=== PATIENT | female | born 1950 | race Caucasian/White ===

== ENCOUNTER 2021-08-02 08:53 | Outpatient (REF) | payer BC, SELFPAY ==
[2021-08-02 09:29] LABS: MANUAL DIFF FLAG NO
[2021-08-02 10:04] LABS: Basophils Absolute Auto 0.1 X10*3/uL (0.0-0.2); Basophils Percent Auto 1.2 % (0-2); Eosinophils Absolute Auto 0.2 X10*3/uL (0.0-0.4); Eosinophils Percent Auto 2.2 % (0-4); Hematocrit 40.8 % (37.0-47.0); Hemoglobin 13.3 g/dl (12.0-16.0); Imm Gran Abs Auto 0.02 X10*3/uL (0.00-0.03); Imm Gran Pct Auto 0.3 % (0.0-0.4); Lymphocytes Percent Auto 51.4 % (20-40); Mean Corpuscular HGB Conc 32.6 g/dl (31.0-35.0); Mean Corpuscular Volume 89.1 fL (80.0-98.0); Monocytes Absolute Auto 0.7 X10*3/uL (0.1-1.2); Monocytes Percent Auto 9.3 % (2-11); Neutrophils Absolute Auto 2.8 x10*3/uL (2.0-8.3); Neutrophils Percent Auto 35.6 % (45-73); Platelet Count 390 X10*3/uL (160-400); Red Blood Count 4.58 X10*6/uL (4.20-5.50); Red Cell Distribution Width 13.4 % (11.0-16.0); White Blood Count 7.7 X10*3/uL (4.8-10.8)
[2021-08-02 10:33] LABS: Alanine Aminotransferase 51 U/L (0-31); Albumin Level 3.9 g/dL (3.5-5.0); Alkaline Phosphatase 70 U/L (39-117); Anion Gap 9 (12-20); Aspartate Amino Transferase 32 U/L (5-31); Bilirubin Total 0.4 mg/dL (0.0-1.0); Blood Urea Nitrogen 12 mg/dL (9-16); Calcium 9.4 mg/dL (8.4-10.2); Carbon Dioxide 27 mmol/L (22-29); Chloride 106 mmol/L (96-108); Cholesterol 274 mg/dL; Estimated Glomerular Filt Rate 44; Glucose Random 102 mg/dL (60-115); HDL Cholesterol 76 mg/dL; LDL Cholesterol Calculated 182 mg/dl; Potassium 4.1 mmol/L (3.3-5.1); Sodium 138 mmol/L (135-145); Total Protein 6.9 g/dL (6.5-8.0); Triglycerides 83 mg/dL
== END 2021-08-02 08:54 | disposition home or self-care (01) ==
LOC: HO.LAB 08:53
PROVIDERS: PCP Internal Medicine; Visit Provider Physician Assistant
DX: I10 Essential (primary) hypertension (principal)
CPT/HCPCS: 36415; 80053; 80061; 85025

== ENCOUNTER 2021-09-23 11:13 | Outpatient (REF) | payer BC, SELFPAY ==
[2021-09-23 12:35] LABS: Albumin Level 4.1 g/dL (3.5-5.0); Calcium 9.2 mg/dL (8.4-10.2); Estimated Glomerular Filt Rate 46
[2021-09-23 12:50] LABS: Thyroid Stimulating Hormone 0.82 uIU/mL (0.32-4.0); Vitamin D 25-OH Total 34.6 ng/mL (>30)
== END 2021-09-23 11:14 | disposition home or self-care (01) ==
LOC: HO.LAB 11:13
PROVIDERS: Absent Provider Internal Medicine; PCP Internal Medicine; Visit Provider Internal Medicine Endocrinology, Diabetes & Metabolism
DX: M81.0 Age-related osteoporosis without current pathological fracture (principal)
CPT/HCPCS: 36415; 82040; 82306; 82310; 82565; 84443

== ENCOUNTER 2023-07-13 08:08 | Outpatient (REF) | payer BC, SELFPAY ==
[2023-07-13 09:26] LABS: Anion Gap 13 (12-20); Blood Urea Nitrogen 15 mg/dL (9-16); Calcium 9.8 mg/dL (8.4-10.2); Carbon Dioxide 26 mmol/L (22-29); Chloride 106 mmol/L (96-108); Cholesterol 277 mg/dL (<200); Estimated Glomerular Filt Rate 45; Glucose Random 100 mg/dL (60-115); HDL Cholesterol 70 mg/dL (>40); LDL Cholesterol Calculated 184 mg/dL (<100); Potassium 4.1 mmol/L (3.3-5.1); Sodium 141 mmol/L (135-145); Triglycerides 117 mg/dL (<150)
== END 2023-07-13 08:09 | disposition home or self-care (01) ==
LOC: HO.LAB 08:08
PROVIDERS: PCP Family Medicine; Visit Provider Family Medicine
DX: I10 Essential (primary) hypertension (principal)
CPT/HCPCS: 36415; 80048; 80061

== ENCOUNTER 2023-09-04 10:24 | Outpatient (REF) | payer BC, SELFPAY ==
[2023-09-04 12:12] LABS: Albumin Level 3.9 g/dL (3.5-5.0); Calcium 9.9 mg/dL (8.4-10.2); Estimated Glomerular Filt Rate 51
[2023-09-04 12:34] LABS: Thyroid Stimulating Hormone 0.76 uIU/mL (0.32-4.0); Vitamin D 25-OH Total 29.5 ng/mL (>30)
== END 2023-09-04 10:25 | disposition home or self-care (01) ==
LOC: HO.LAB 10:24
PROVIDERS: PCP Family Medicine; Visit Provider Internal Medicine Endocrinology, Diabetes & Metabolism
DX: M81.0 Age-related osteoporosis without current pathological fracture (principal); E89.0 Postprocedural hypothyroidism
CPT/HCPCS: 36415; 82040; 82306; 82310; 82565; 84443

== ENCOUNTER 2024-06-09 07:55 | Outpatient (REF) | payer MEDICARE, SELFPAY ==
--- OUTSIDE RECORDS SUMMARY | 2024-06-09 08:03 | XMS_ITS | Data Portability ---
Author Organization [facility] Service Address [address] [place] [address] Assessment Encounter Date Assessment Date Assessment LastModified by Organization Details LastModified Time 11/01/2021 11/01/2021 Patient agreed and verbally consents to this audio and video Telehealth appt via a secure platform [email or web address] Not available 11/01/2021 15:52:36 01/20/2022 01/20/2022 The patient denies recent falls or recurrent falls. Denies instability, weakness, abnormal gait, or difficulties with movement. The patient wears correct, supportive shoes and is not otherwise severely visually impaired. The patient is full weight bearing and if using the assistance of a cane or walker feels supported and stable with the use of such devices. All medical conditions have been taken into account that may pose a risk for the patient for falls. Home jake, carpets and/or rugs do not pose a challenge for the patient. The patient has been educated about the use of vitamin D supplementation for bone health and prevention of hypotensive episodes that may increase risk for fall. All question and concerns were answered to the patient's satisfaction. [email or web address] Not available 01/20/2022 11:39:39 Plan of Treatment Reminders Order Date Submit Date Provider Last Modified By Organization Details Last Modified Time Details Appointments None recorded. Lab CBC w/ auto diff 2021 [facility], [address] [place] [address], [place], [address], 12:10:12 CMP, serum or plasma 2021 [facility], [address] [place] [address], [address], 12:10:12 lipid panel, blood 2021 [facility], [address] [place] [address], [place], [address], 12:10:12 Referral allergy and immunology specialist referral 2021 [facility] [address] [facility], [address] [place], [address], 16:43:24 Procedures None recorded. Surgeries None recorded. Imaging CT, breast, w/ 3D rendering when performed, bilateral, w/ contrast - dense breast tissue, recommended fu imaging outside of the MM 2021 [facility], [address], [place], [address], 08:45:39 Medication Orders neomycin-po lymyxin-hyd rocort 3.5 mg-10,000 unit/mL-1 % ear drops,susp 2021 [id number], [address] [place], [place], [id number], 11:17:54 losartan 25 mg tablet 2021 [facility], [address] [place] [address], [address], 09:44:32 amoxicillin 875 mg-potassiu m clavulanate 125 mg tablet 2021 [id number], [facility] [place], [place], [phone], 09:28:46 famotidine 40 mg tablet 2021 [facility], [address] [place] [address], [address], 15:53:43 betamethaso ne valerate 0.1 % topical cream 2021 [id number], [address] [facility], [place], [place], [id number], 15:17:55 albuterol sulfate 2.5 mg/3 mL (0.083 %) solution for nebulizatio n 2021 [facility], [address] [facility], [place], [address], 14:00:50 Patient TargetsNo targets recorded. Patient InstructionsNo instructions recorded. Reason for Referral Hose Maker Referral for Seaso nal allergic rhinitis possible seasonal allergies with ear pressure Referring Physician: Julia Pelayo, Internal Medicine, Encounter Date: 01/20/2022 Results Created Date Observation Date Name Description Value Unit Range Abnormal Flag Note LastModifiedBy Organization Detail LastModifiedTime Result Notes None recorded. Problems Name Problem SNOMED Code Status Onset Date Resolution Date Notes Provider Name and Address Organization Details Recorded Time Osteoporo sis 77655228 Active 2021 Not Available [facility] 3 18:29:46 Diverticu losis of colon 487567460 Active 2021 Not Available [facility] 3 18:29:46 Asthma 428307374 Active 2021 Not Available [facility] 3 18:29:46 Gastroeso phageal reflux disease 749803770 Active 2021 Not Available [facility] 3 18:29:46 Arthritis 0064455 Active 2021 Not Available [facility] 3 18:29:46 Raynaud's disease 607361034 Active 2021 Not Available [facility] 3 18:29:46 Basal cell carcinoma of skin 946289635 Active 2021 Not Available [facility] 3 18:29:46 Hypertens augie disorder 80998679 Active 2021 Not Available [facility] 3 18:29:46 Hyperlipi demia 93631721 Active 2021 Not Available [facility] 3 18:29:46 Contact dermatiti s 43254065 Active 2021 Not Available [facility] 3 18:29:46 Hordeolum externum of upper eyelid of left eye 69526028555 9102 Active 2021 Not Available [facility] 3 18:29:46 Acute sinusitis 63646776 Active 2021 Not Available [facility] 3 18:29:46 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 Not Available [facility] 3 18:29:46 Acute otitis media 7882362 Active 2021 Not Available [facility] 3 18:29:46 Essential hypertens ion 61384945 Active 2021 Not Available [facility] 3 18:29:46 Bilateral earache 758761619 Active 2021 Not Available [facility] 3 18:29:46 Bilateral tinnitus 03116800302 02 Active 2021 Not Available [facility] 3 18:29:46 Seasonal allergic rhinitis 768670944 Active 2021 Not Available [facility] 3 18:29:46 Heterogen eously dense breast compositi on 055936675 Active 2021 Not Available [facility] 3 18:29:46 Problem Notes None recorded. Medical Equipment None Reported. Allergies Allergen ID Allergen Name Allergen Category Reaction Reaction Severity Criticality Documentation Date Start Date Code Code System Note Provider Name and Address Organization Details Recorded Time 5647 Ceclor medicatio n Not available Not available Not available 07/08/2021 03586 5 RxNorm [facility] 2 13:37:48 5648 morphine medicatio n Not available Not available Not available 07/08/2021 7052 RxNorm [facility] 2 13:37:55 5649 Levaquin medicatio n Not available Not available Not available 07/08/2021 19566 2 RxNorm IV form Mendy lafleur [facility] 2 13:38:18 5650 latex environme nt,medica tion Not available Not available Not available 07/08/2021 04119 91 RxNorm Mendy lafleur [facility] 2 13:38:25 5651 adhesive environme nt,medica tion Not available Not available Not available 07/08/2021 38513 UNK Mendy Daleyner miquel [facility] 2 13:38:32 5896 Keflex medicatio n anaphylax is severe Not available 11/01/202156569 7 RxNorm CAREY SMITH [address] [place], [address], [facility] 2 15:51:13 Medications Name Sig Start Date Stop Date Status Note LastModified by Organization Details LastModified Time budesonide 32 mcg/actuati on nasal spray SHAKE LIQUID AND USE 1 SPRAY IN EACH NOSTRIL EVERY DAY active Not Available Not Available No t Available zafirlukast 10 mg tablet TAKE 1 TABLET BY MOUTH TWICE DAILY 07/08 completed Not Available Not Available Not Available albuterol sulfate 2.5 mg/3 mL (0.083 %) solution for nebulizatio n Inhale 3 mL 3 times a day by nebulizat ion route as needed for 90 days. active Not Available Not Available No t Available famotidine 40 mg tablet TAKE 1 TABLET DAILY active Not Available Not Available No t Available fluorouraci l 5 % topical cream APPLY TOPICALLY TO THE AFFECTED AREA TWICE DAILY FOR 4 TO 6 WEEKS active Not Available Not Available No t Available betamethaso ne valerate 0.1 % topical cream APPLY THIN LAYER TOPICALLY TO THE AFFECTED AREA EVERY DAY active Not Available Not Available No t Available losartan 25 mg tablet TAKE 1 TABLET BY MOUTH DAILY active Not Available Not Available No t Available Synthroid 75 mcg tablet Take 1 tablet every day by oral route for 90 days. active Not Available Not Available No t Available raloxifene 60 mg tablet Take 1 tablet every day by oral route. active Not Available Not Available No t Available albuterol sulfate HFA 90 mcg/actuati on aerosol inhaler Inhale 2 puffs as needed by inhalatio n route for 90 days. active Not Available Not Available No t Available amoxicillin 875 mg-potherou m clavulanate 125 mg tablet TAKE 1 TABLET BY MOUTH EVERY 12 HOURS FOR 10 DAYS 12/04 completed Not Available Not Available Not Available neomycin-po lymyxin-hyd rocort 3.5 mg-10,000 unit/mL-1 % ear drops,susp SHAKE LIQUID AND INSTILL 4 DROPS TO AFFECTED EAR THREE TIMES DAILY 01/20 completed Not Available Not Available Not Available Restasis 0.05 % eye drops in a dropperette active Not Available Not Available Not Available [place] 3 Fish Oil daily active OTC Not Available Not Available Not Available red yeast rice daily active OTC Not Available Not Available Not Available Flowflex COVID-19 Antigen Home Test kit 01/20 completed Not Available Not Available Not Available Vitals Date Recorded Body weight Oxygen saturation Oxygen saturation in Arterial blood by Pulse oximetry Heart rate Systolic blood pressure Diastolic blood pressure Provider Name and Address Organization Details Last Updated DateTime 2 58276.0 8 g 97 % 97 % 82 /min 132 mm[Hg] 70 mm[Hg] Mendy Thomas [facility] 2 13:43:48 Date Recorded Body weight Oxygen saturation Oxygen saturation in Arterial blood by Pulse oximetry Heart rate Systolic blood pressure Diastolic blood pressure Provider Name and Address Organization Details Last Updated DateTime 2 15172.7 1 g 98 % 98 % 78 /min 110 mm[Hg] 78 mm[Hg] Mendy Thomas [facility] 2 15:08:59 Date Recorded Body weight Oxygen saturation Oxygen saturation in Arterial blood by Pulse oximetry Heart rate Systolic blood pressure Diastolic blood pressure Provider Name and Address Organization Details Last Updated DateTime 2 34458.5 5 g 96 % 96 % 67 /min 138 mm[Hg] 90 mm[Hg] Mendy Thomas [facility] 2 09:35:27 Date Recorded Body weight Body mass index (BMI) Body height Provider Name and Address Organization Details Last Updated DateTime 01/20/2022 92983.58 g 21.2 kg/m2 168.91 cm Mendy Basile [facility] 01/20/2022 11:20:50 Social History Question Answer Notes LastModified by Organizat ion Details LastModified Time Tobacco Smoking Status Never Smoker Mendy lafleur [facility] 10/18/2021 15:03:02 What Was The Date Of Your Most Recent Tobacco Screening? 10/18/2021 [email or web address] Information not available 10/18/2021 Sex: Unknown Functional Status None recorded. Mental Status None recorded. Family History Nothing Reported. Medical History No medical history recorded. Gynecological HistoryNo gynecological history recorded. Obstetrics History GPAL:G 0 P 0 0 0 0 Immunizations Vaccine Type Date Status Note Provider Nam e and Address Organization Details Recorded Time COVID-19 vaccine, vector-nr, rS-Ad26, PF, 0.5 mL 1 completed Not Available [facility] 09/22/2022 18:29:46 COVID-19, mRNA, LNP-S, PF, 30 mcg/0.3 mL dose 1 completed Not Available [facility] 09/22/2022 18:29:46 COVID-19, mRNA, LNP-S, PF, 30 mcg/0.3 mL dose 2 completed Not Available [facility] 09/22/2022 18:29:46 COVID-19, mRNA, LNP-S, PF, 30 mcg/0.3 mL dose 2 completed Not Available [facility] 09/22/2022 18:29:46 zoster, unspecified formulation 6 completed Not Available [facility] 09/22/2022 18:29:46 Influenza, split virus, quadrivalent, preservative 7 completed Not Available [facility] 09/22/2022 18:29:46 Influenza, split virus, quadrivalent, preservative 0 completed Not Available [facility] 09/22/2022 18:29:46 Influenza, split virus, quadrivalent, preservative 1 completed Not Available [facility] 09/22/2022 18:29:46 Past Encounters Encounter ID Performer Location Encounter Start Date Encounter Closed Date Diagnosis/Indication Diagnosis SNOMED-CT Code Diagnosis ICD10 Code Diagnosis Note [id number] [facility] [address] [facility], [place] [address] 07/08/2021 13:19:39 07/09/2021 14:42:04 Asthma 110484330 J45.40 will increase how often she uses albuterol Hypertensive disorder 38 856662 I10 will fu with routine blood work Gastroesop hageal reflux disease 093671731 K21.9 stable Osteoporosis 15794634 M8 1.0 follows with endo Hyperlipidemia 50061849 E78.2 monitoring , does not want to be on a statin [id number] [facility] [address] [facility], [place] [address] 10/18/2021 14:45:28 10/18/2021 15:39:55 Contact dermatitis 72909828 L25.9 possible reaction to something at the dentist or when she was biking [id number] CAREY SMITH [facility] [address] [facility], [place] [address] 11/01/2021 15:19:05 11/04/2021 08:07:47 Hordeolum externum of upper eyelid of left eye 4741341431 03012 H00.014 will start on augmentin Acute sinusitis 87332295 J01.01 will fu with augmentin Gastroesop hageal reflux disease 755216191 K21.9 stable on the medication [id number] [facility] [address] [facility], [place] [address] 12/04/2021 09:25:42 12/04/2021 10:15:08 Essential hypertension 49498984 I10 will refill for the patient Acute otitis media 89343 03 H65.01 will start on ear drop with patient also still using flonase [id number] CAREY SMITH [facility] [address] [facility] [address] 01/20/2022 10:59:24 01/21/2022 10:53:14 Essential hypertension 93935407 I10 will refill for the patient Hyperlipidemia 72047395 E78.2 monitoring , does not want to be on a statin Asthma 187114637 J45.40 will increase how often she uses albuterol as discussed Bilateral tinnitus 94129 35512 102 H93.13 discussed sending her to allergy and immunology specialist since ENT is being booked out a year Seasonal a llergic rhinitis 108735006 J30.2 will send referral Heterogene ously dense breast composition 681438598 R92.2 will f/u with CT Health Concerns Section Related Observation LastModified by Organization Detai ls LastModified Time None Recorded Concern Status LastModified by Organization Details LastModified Time None Recorded Advance Directives Directive None Recorded Payers Encounter Date Sequence Insurance Name Policy Number Policy Varma Covered Member ID Varma Member ID Guarantor Name 07/08/2021 1 [place] [id number] [facility] [id number] [facility] 10/18/2021 1 [place] [id number] [facility] [id number] [facility] 11/01/2021 1 [place] [id number] [facility] [id number] [facility] 12/04/2021 1 [place] [id number] [facility] [id number] [facility] 01/20/2022 1 [place] [id number] [facility] [id number] 09 [facility] Notes Date Note Type Note Provider Name a nd Address Organization Details Recorded Time 2 text/html NPV allergies: listed in her chartno changes in allergies problems:arthritis: discussed supplement she could use, can try tumeric which she has had luck with in the pastdoes not want to try medications or gels, concerned about side effects asthma: discussed start increase in albuterol, how often she takes it and set her up with a neb to use for bad flare ups GERD: stable HTN: stable osteoporosis: sees endo for consult and eval, adjustment of medications Medication: all set vitals: stable CAREY SMITH [address] [place], [address], [facility] 07/08/2021 14:14:55 2 text/html c/o rash the patient reports that she developed a rash around last weekno idea what caused itwas recently at the dentist and has a latex allergynot sure what they had on for PPE when she wentwas also biking and brushed past some trees which may have contributed looks like contact dermatitis, cause unknown at this timewill start on higher potency steriod cream and fu continue on claritin as she has a bilateral serous otitis media (R>L) CAREY SMITH [address] [place], [address], [facility] 10/18/2021 15:25:29 2 text/html c/o sinus symptoms telemed phone callpatient consents to the phone call the patient reports that she originally thought her symptoms were related to her allergiesthe patient reports that she developed pain in her bilateral earsreports fatigue increasing as well reports that she feels sinus pressure now, with left eye pressure and painthe patient reports she developed a stye in her left eye will start on augmentin CAREY SMITH [address] [place], [address], [facility] 11/01/2021 16:01:18 2 text/html c/o right ear pain the patient reports that she recovered from her sinus infection but now her ear, right sideprobably from allergiesstopped the flonase and also went on vacation where the elevation caused her ears to continuously pop will start on an ear drop with abx and steriod combo to help patientwill restart her on flonasecan also start anti-histamine as well if she would likefu if no improvement CAREY SMITH [address] [place], [address], [facility] 12/04/2021 09:52:00 2 text/html f/u appointment with mutliple concerns HTN: patient refused vitals HLD: patient will need blood work asthma: stable, but patient refused vitals handled all of patient's concerns today that would otherwise be a physical concern will start will allergy and immunology specialist referraljanae quintana with CT scan of her breast for extremely dense breasts asthma stable declined dariel went over BW with patient CAREY SMITH [address] [place], [address], [facility] 01/20/2022 11:51:02 OBGyn Episode No OBEpisode recorded.
--- OUTSIDE RECORDS SUMMARY | 2024-06-09 08:03 | XMS_ITS | Continuity of Care Document ---
Author Organization [facility] ter Address [address] [place] [id number]- Care Team Providers Care Baggage Checker Name Role Phone Yamila Watters MD Primary Care Physician Encounter 05/13/24 - 05/14/[address] [id number] Attending Physician: Not on Staff, Attending MD Referring Physician: Not on Staff, Referring MD Encounter Type: SMRI Allergies, Adverse Reactions, Alerts Substance Criticality Severity Reaction Reaction Severity Status cephalexin Bronchospasm Active Ceclor hives Active morphine 1 Pruritus - diso rder hives Active Levaquin Knee swelling 11-JUN-2013 07:21:16<$> burning through veins Active 1was able to tolerate codeine in cough syrup. Immunizations Given and Recorded Vaccine Date Status Refusal Reason SARS-CoV-2 (COVID-19) mRNA BNT-162b2 vac 02/19/21 Recorded influenza virus vaccine, inactivated 02/04/21 Suraj rded influenza virus vaccine, inactivated 01/17/20 Suraj rded influenza virus vaccine, inactivated 01/14/19 Suraj rded influenza virus vaccine, inactivated 01/25/18 Give n influenza virus vaccine, inactivated 1 12/25/16 Gi kerri influenza virus vaccine, inactivated 01/18/16 Give n influenza virus vaccine, inactivated 01/10/15 Give n influenza virus vaccine, inactivated 2 01/25/14 Gi kerri influenza virus vaccine, inactivated 12/23/12 Give n influenza virus vaccine, inactivated 3 01/15/12 Gi kerri influenza virus vaccine, inactivated 4 01/04/11 Gi kerri SARS-CoV-2 (COVID-19) Ad26 vaccine 07/11/20 Record ed pneumococcal 13-valent vaccine 5 03/10/18 Given Zoster Vaccine Live 08/02/15 Recorded pneumococcal 23-valent vaccine 6 07/12/13 Given tetanus/diphtheria/pertussis, acel(Tdap) 7 06/11/12 Given 1Admin Note: done @ pharm 2Result Comment: [01/25/2014] given w/out incident 3Admin Note: MANUFACTURE BIOMEDICAL VIS SHEET GIVEN (10/29/2010) GIVEN W/O INCIDENT 4Admin Note: done @ previous office 5Result Comment: [03/10/2018] given w/out incident [facility] [id number] 6Result Comment: [07/12/2013] given w/out incident 7Admin Note: given w/out incident, VIS info form given 04/29/2011 Medications Aerochamber See Instructions, # 1 each, Maintenance, use with metered dose inhalers, 09/28/19 10:43:00 AM EDT, Supply, 168.9, cm, 09/28/19 10:07:00 EDT, Height, 59.4, kg, 04/19/19 14:19:00 EST, Dry Weight Start Date: 09/28/19 Status: Ordered Quantity: 1.0 Unit: each Repeat number: 1 Benefiber oral powder for reconstitution 5 mL, By Mouth, 2 times a day, PRN as needed for constipation, # 477 Gm, 11 Refills, Maintenance, 05/21/20 2:54:00 PM EST, REC Powder Start Date: 05/21/20 Stop Date: 05/16/21 Status: Ordered Quantity: 477.0 Unit: g Repeat number: 12 famotidine 40 mg oral tablet 1 tablet = 40 mg, By Mouth, Daily at bedtime, # 90 tablet, 3 Refills, Maintenance, 08/23/20 8:30:00 AM EDT, Tablet, [facility], refill when due, 168, cm, 08/23/20 8:06:00 EDT, Height, 59.4, kg, 04/19/19 14:19:00 EST, Dry Weight Start Date: 08/23/20 Stop Date: 08/18/21 Status: Ordered Quantity: 90.0 Unit: tablet Repeat number: 4 Fish Oil 1200 mg oral capsule 1 capsule = 1,200 mg, By Mouth, Daily, # 30 capsule, 11 Refills, Maintenance, 07/30/15 1:58:11 PM EDT, [facility] Start Date: 07/30/15 Stop Date: 07/24/16 Status: Ordered Quantity: 30.0 Unit: capsule Repeat number: 12 ICaps with Lutein and Zeaxan oral tablet 1 tablet, By Mouth, Daily, # 30 tablet, 4 Refills, Maintenance, 02/24/19 1:51:58 PM EST, Tablet Start Date: 02/24/19 Stop Date: 03/26/19 Status: Ordered Quantity: 30.0 Unit: tablet Repeat number: 1 levothyroxine 75 mcg (0.075 mg) oral tablet 1 tablet = 75 mcg, By Mouth, Daily, # 90 tablet, 0 Refills, Maintenance, 08/23/20 8:10:00 AM EDT, Tablet, Partial fill upon patient request if the prescription is for a schedule II opioid drug. Start Date: 08/23/20 Stop Date: 11/21/20 Status: Ordered Quantity: 90.0 Unit: tablet Repeat number: 1 losartan 25 mg oral tablet 1 tablet, By Mouth, Daily, # 90 tablet, 1 Refills, [facility], 168, cm, 09/24/2114:00:00 EDT, Height Start Date: 05/31/21 Status: Ordered Quantity: 90.0 Unit: tablet Repeat number: 1 Lutein and Zeaxan gummies Lutein and Zeaxan gummies, By Mouth, Daily, Refills 0, Maintenance, 09/16/19 8:44:00 AM EDT, Supply Start Date: 09/16/19 Status: Ordered Repeat number: 1 Multivitamin By Mouth, Daily, 0 Refills, Maintenance, 09/30/10 2:11:45 PM EDT Start Date: 09/30/10 Status: Ordered Repeat number: 1 ProAir HFA 90 mcg/inh inhalation aerosol with adapter 2, puffs, Inhalation, Every 4 hours, PRN, # 3 each, Refills 0, Tot. Refills 0, Maintenance, :10:00 PM EST, Aerosol, Route to Pharmacy Electronically, [id number], [facility], 168, cm, 09/24/20 15:00:00 EDT, Height Start Date: 05/06/21 Stop Date: 08/04/21 Status: Ordered Quantity: 3.0 Unit: each Repeat number: 1 raloxifene 60 mg oral tablet 1 tablet = 60 mg, By Mouth, Daily, # 90 tablet, 3 Refills, Maintenance, 08/23/20 8:30:00 AM EDT, Tablet, [facility], 168, cm, 08/23/20 8:06:00 EDT, Height, 59.4, kg, 04/19/19 14:19:00 EST, Dry Weight Start Date: 08/23/20 Stop Date: 08/18/21 Status: Ordered Quantity: 90.0 Unit: tablet Repeat number: 4 red yeast rice 600 mg oral capsule 2 capsule = 1,200 mg, By Mouth, 2 times a day, # 120 capsule, 11 Refills, Maintenance, 07/29/21 3:02:00 PM EDT Start Date: 07/29/21 Stop Date: 07/24/22 Status: Ordered Quantity: 120.0 Unit: capsule Repeat number: 12 Restasis 0.05% ophthalmic emulsion 1 drops, Eyes, Both, Every 12 hours, # 1 bottle, 0 Refills, Maintenance, 10/13/11 4:32:40 PM EDT Start Date: 10/13/11 Stop Date: 11/12/11 Status: Ordered Quantity: 1.0 Unit: bottle Repeat number: 1 Problem List Condition Confirmation Course Effective Dates Status Health Status Informant Asthma Confirmed Active Bradycardia Confirmed Active Chronic kidney disease, stage 3a 1 Confirmed Active Closed compression fracture of L2 lumbar vertebra Confirmed 07/02/15 Active Diverticulosis of colon Confirmed Active Ex-cigarette smoker Confirmed Active Family History of Asthma (grandmother) Confirmed Active Family history of breast cancer (mom) Confirmed Active Family history of cerebrovascular accident (CVA) (grandfather) Confirmed Active Family history of congestive heart failure (grandmother) Confirmed Active Family history of diabetes mellitus type I (brother) Confirmed Active Family history of lung cancer (brother) Confirmed Active Family history of Parkinsonism (grandfather) Confirmed Active Family history of renal insufficiency syndrome (dad) Confirmed Active Family history of scleroderma (dad) Confirmed Active Fracture of four ribs Confirmed 1965 Active Gastro-Esophageal Reflux Disease Without Esophagitis Confirmed Active H/O splenectomy Confirmed 1964 Active History of hysterectomy Confirmed 1986 Active Hx of cholecystectomy Confirmed 2009 Active Hypercholesterolemia Confirmed 07/08/12 Active Hypothyroidism Confirmed Active Osteoarthritis of lumbar spine Confirmed 07/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 Osteoporosis NOS Confirmed 2004 Active S/P carpal tunnel release, Right hand Confirmed 1992 Active S/P carpal tunnel release, left hand Confirmed 1993 Active Stress ulcer Confirmed Active Tear of left supraspinatus tendon s/p arthroscopic repair Confirmed 05/05/16 Active Thyroid nodule, uninodular Confirmed 02/23/12 Active Total Abdominal Hysterectomy Confirmed 1986 Active White Coat Hypertension Confirmed Active 1Per chart review meeting GFR criteria Social History Social History Type Response Smoking Status Former smoker; Tobac co user in household: No; Other: quit 1981; entered on: 08/18/13 Sex Female Sex Representation Female (finding) Patient Care team information Care Team Personnel Name: Duong KIRKPATRICK, Yamila Parker Position: Reference Physician Member Role: PCP Address: [address] [place] [address] Telecom: Care Team Related Persons Name: MILDRED HAGEN Name: LILLIANA HEBERT Insurance Providers Guarantor name: NAE HEBERT Health Plan Information #: 1 Payer: [facility] Member Number: NA Policy Number: NA Group Number: NA
[2024-06-09 09:14] LABS: Anion Gap 11 (12-20); Blood Urea Nitrogen 17 mg/dL (9-16); Calcium 9.8 mg/dL (8.4-10.2); Carbon Dioxide 28 mmol/L (22-29); Chloride 106 mmol/L (96-108); Cholesterol 271 mg/dL (<200); Estimated Glomerular Filt Rate 47; HDL Cholesterol 92 mg/dL (>40); LDL Cholesterol Calculated 163 mg/dL (<100); Potassium 4.2 mmol/L (3.3-5.1); Sodium 141 mmol/L (135-145); Triglycerides 83 mg/dL (<150)
== END 2024-06-09 07:56 | disposition home or self-care (01) ==
LOC: HO.LAB 07:55
PROVIDERS: PCP Family Medicine; Visit Provider Family Medicine
DX: I10 Essential (primary) hypertension (principal)
CPT/HCPCS: 36415; 80051; 80061; 82310; 82565; 84520

== ENCOUNTER 2024-09-22 08:05 | Outpatient (REF) | payer MEDICARE, SELFPAY ==
--- OUTSIDE RECORDS SUMMARY | 2024-09-22 08:12 | XMS_ITS | Data Portability ---
Author Organization [facility], Telehealth Patient Home Address [address] [place] [address] Assessment Encounter Date Assessment Date Assessment LastModified [...] recorded. 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 Surgeries None recorded. Imaging CT, breast, w/ 3D rendering when performed, bilateral, w/ contrast - dense breast tissue, recommended fu imaging outside of the MM 2021 [facility], [address], [place], [address], 08:45:39 Medication Orders neomycin-po lymyxin-hyd rocort 3.5 mg-10,000 unit/mL-1 % ear drops,susp [id number], [address] [place], [place], [id number], 11:17:54 losartan 25 mg tablet 2021 [facility], [address] [place] [address], [address], 09:44:32 amoxicillin 875 mg-potassiu m clavulanate 125 mg tablet 2021 [id number], [facility] [place], [place], [id number], 09:28:46 famotidine 40 mg tablet 2021 [facility], [address] [place] [address], [address], 15:53:43 betamethaso ne valerate 0.1 % topical cream 2021 [facility], [address] [facility], [place], [place], [id number], 15:17:55 albuterol sulfate 2.5 mg/3 mL (0.083 %) solution for nebulizatio n 2021 [facility], [address] [facility], [place], [address], 14:00:50 Patient TargetsNo targets recorded. Patient InstructionsNo instructions recorded. 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 Problems Name Problem SNOMED Code Status Onset Date Resolution Date Notes Provider Name and Address Organization Details Recorded Time Osteoporo sis 13163915 Active 2021 Not Available [facility] 3 18:29:46 Diverticu losis of colon 897722223 Active 2021 Not Available [facility] 3 18:29:46 Asthma 289334982 Active 2021 Not Available [facility] 3 18:29:46 Gastroeso phageal reflux disease 014953723 Active 2021 Not Available [facility] 3 18:29:46 Arthritis 7610959 Active 2021 Not Available [facility] 3 18:29:46 Raynaud's disease 611117777 Active 2021 Not Available [facility] 3 18:29:46 Basal cell carcinoma of skin 209772303 Active 2021 Not Available [facility] 3 18:29:46 Hypertens augie disorder 26845411 Active 2021 Not Available [facility] 3 18:29:46 Hyperlipi demia 20741526 Active 2021 Not Available [facility] 3 18:29:46 Contact dermatiti s 24140397 Active 2021 Not Available [facility] 3 18:29:46 Hordeolum externum of upper eyelid of left eye 52245323014 9102 Active 2021 Not Available [facility] 3 18:29:46 Acute sinusitis 62005567 Active 2021 Not Available [facility] 3 18:29:46 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 Not Available [facility] 3 18:29:46 Acute otitis media 4752256 Active 2021 Not Available [facility] 3 18:29:46 Essential hypertens ion 35777986 Active 2021 Not Available [facility] 3 18:29:46 Bilateral earache 744876364 Active 2021 Not Available [facility] 3 18:29:46 Bilateral tinnitus 81414101138 02 Active 2021 Not Available [facility] 3 18:29:46 Seasonal allergic rhinitis 309948127 Active 2021 Not Available [facility] 3 18:29:46 Heterogen eously dense breast compositi on 960792869 Active 2021 Not Available [facility] 3 18:29:46 Problem Notes None recorded. Medical Equipment None Reported. Allergies Allergen ID Allergen Name Allergen Category Reaction Reaction Severity Criticality Documentation Date Start Date Code Code System Note Provider Name and Address Organization Details Recorded Time 5647 Ceclor medicatio n Not available Not available Not available 07/08/2021 52417 5 RxNorm [facility] 2 13:37:48 5648 morphine medicatio n Not available Not available Not available 07/08/2021 7052 RxNorm [facility] 2 13:37:55 5649 Levaquin medicatio n Not available Not available Not available 07/08/2021 14395 2 RxNorm IV form Mendy lafleur [facility] 2 13:38:18 5650 latex environme nt,medica tion Not available Not available Not available 07/08/2021 46662 91 RxNorm Mendy lafleur [facility] 2 13:38:25 5651 adhesive environme nt,medica tion Not available Not available Not available 07/08/2021 01855 UNK Mendy Daleyner miquel [facility] 2 13:38:32 5896 Keflex medicatio n anaphylax is severe Not available 11/01/202122690 7 RxNorm CAREY SMITH [address] [place], [address], [facility] 2 15:51:13 Medications Name Sig Start Date [...] Not Available No t Available amoxicillin 875 mg-marcelo m clavulanate 125 mg tablet TAKE 1 [...] active Not Available Not Available Not Available [place] 3 Fish Oil daily active OTC Not [...] Address Organization Details Last Updated DateTime 2 28089.0 8 g 97 % 97 % 82 /min 132 mm[Hg] 70 mm[Hg] Mendy Thomas [facility] 2 13:43:48 Date Recorded Body weight Oxygen saturation Oxygen saturation in Arterial blood by Pulse oximetry Heart rate Systolic blood pressure Diastolic blood pressure Provider Name and Address Organization Details Last Updated DateTime 2 50189.7 1 g 98 % 98 % 78 /min 110 mm[Hg] 78 mm[Hg] Mendy Thomas [facility] 2 15:08:59 Date Recorded Body weight Oxygen saturation Oxygen saturation in Arterial blood by Pulse oximetry Heart rate Systolic blood pressure Diastolic blood pressure Provider Name and Address Organization Details Last Updated DateTime 2 92080.5 5 g 96 % 96 % 67 /min 138 mm[Hg] 90 mm[Hg] Mendy Thomas [facility] 2 09:35:27 Date Recorded Body weight Body mass index (BMI) Body height Provider Name and Address Organization Details Last Updated DateTime 01/20/2022 92980.58 g 21.2 kg/m2 168.91 cm Mendy William [facility] 01/20/2022 11:20:50 Social History Question Answer Notes LastModified by Organizat ion Details LastModified Time Tobacco Smoking Status Never Smoker Mendy lafleur [facility] 10/18/2021 15:03:02 What Was The [...] PF, 0.5 mL 1 completed Not Available [facility] 09/22/2022 18:29:46 COVID-19, mRNA, LNP-S, PF, 30 mcg/0.3 mL dose 1 completed Not Available [facility] 09/22/2022 18:29:46 COVID-19, mRNA, LNP-S, PF, 30 mcg/0.3 mL dose 2 completed Not Available [facility] 09/22/2022 18:29:46 COVID-19, mRNA, LNP-S, PF, 30 mcg/0.3 mL dose 2 completed Not Available [facility] 09/22/2022 18:29:46 zoster, unspecified formulation 6 completed Not Available [facility] 09/22/2022 18:29:46 Influenza, split virus, quadrivalent, preservative 7 completed Not Available [facility] 09/22/2022 18:29:46 Influenza, split virus, quadrivalent, preservative 0 completed Not Available [facility] 09/22/2022 18:29:46 Influenza, split virus, quadrivalent, preservative 1 completed Not Available [facility] 09/22/2022 18:29:46 Past Encounters Encounter ID Performer Location Encounter Start Date Encounter Closed Date Diagnosis/Indication Diagnosis SNOMED-CT Code Diagnosis ICD10 Code Diagnosis Note [id number] Kb Mack DO [facility] [address] [facility], [place] [address] 07/08/2021 13:19:39 07/09/2021 14:42:04 Asthma 018549060 J45.40 will increase how often she uses albuterol Hypertensive disorder 38 284746 I10 will fu with routine blood work Gastroesop hageal reflux disease 292311063 K21.9 stable Osteoporosis 90487625 M8 1.0 follows with endo Hyperlipidemia 73832525 E78.2 monitoring , does not want to be on a statin [id number] Kb Mack DO [facility] [address] [facility], [place] [address] 10/18/2021 14:45:28 10/18/2021 15:39:55 Contact dermatitis 10236780 L25.9 possible reaction to something at the dentist or when she was biking [id number] Kb Mack DO [facility] [address] [facility] [place] [address] 11/01/2021 15:19:05 11/04/2021 08:07:47 Hordeolum externum of upper eyelid of left eye 0199090077 97270 H00.014 will start on augmentin Acute sinusitis 75663181 J01.01 will fu with augmentin Gastroesop hageal reflux disease 180397605 K21.9 stable on the medication [id number] CAREY SMITH [facility] [address] [facility], [place] [address] 12/04/2021 09:25:42 12/04/2021 10:15:08 Essential hypertension 52714818 I10 will refill for the patient Acute otitis media 95414 03 H65.01 will start on ear drop with patient also still using flonase [id number] Kb Mack DO [facility] [address] [facility] [address] 01/20/2022 10:59:24 01/21/2022 10:53:14 Essential hypertension 66819920 I10 will refill for the patient Hyperlipidemia 92829649 E78.2 monitoring , does not want to be on a statin Asthma 375570135 J45.40 will increase how often she uses albuterol as discussed Bilateral tinnitus 47973 70268 102 H93.13 discussed sending her to scrub wheel operator since ENT is being booked out a year Seasonal a llergic rhinitis 526415921 J30.2 will send referral Heterogene ously dense breast composition 162800554 R92.2 will f/u with CT Health Concerns Section Related Observation LastModified by Organization Detai ls LastModified Time None Recorded Concern Status LastModified by Organization Details LastModified Time None Recorded Advance Directives Directive None Recorded Payers Insurance Date Sequence Insurance Name Policy Number Policy Varma Covered Member ID Varma Member ID Guarantor Name 01/17/2022 1 TRISH (PPO) [id number] Bhavana Morton [id number] Bhavana Morton Notes Date Note Type Note Provider Name [...] all set vitals: stable CAREY SMITH [address] [place], [address], [facility] 07/08/2021 14:14:55 2 text/html c/o [...] serous otitis media (R>L) CAREY SMITH [address] [place], [address], [facility] 10/18/2021 15:25:29 2 text/html c/o sinus symptoms [...] will start on augmentin CAREY SMITH [address] [place], [address], [facility] 11/01/2021 16:01:18 2 text/html c/o right ear [...] likefu if no improvement CAREY SMITH [address] [place], [address], [facility] 12/04/2021 09:52:00 2 text/html f/u appointment with mutliple concerns HTN: patient refused vitals HLD: patient will need blood work asthma: stable, but patient refused vitals handled all of patient's concerns today that would otherwise be a physical concern will start will scrub wheel operator referralwill mariano with CT scan of her breast for extremely dense breasts asthma stable declined dariel went over BW with patient CAREY SMITH [address] [place], [address], [facility] 01/20/2022 11:51:02 OBGyn Episode No OBEpisode recorded.
[2024-09-22 08:57] LABS: Cholesterol 247 mg/dL (<200); HDL Cholesterol 72 mg/dL (>40); LDL Cholesterol Calculated 153 mg/dL (<100); Triglycerides 110 mg/dL (<150)
== END 2024-09-22 08:06 | disposition home or self-care (01) ==
LOC: HO.LAB 08:05
PROVIDERS: PCP Family Medicine; Visit Provider Family Medicine
DX: E78.00 Pure hypercholesterolemia, unspecified (principal)
CPT/HCPCS: 36415; 80061

== ENCOUNTER 2025-01-17 15:11 | Outpatient (REF) | payer MEDICARE, SELFPAY ==
[2025-01-17 16:21] LABS: Estimated Glomerular Filt Rate 52
[2025-01-17 16:24] LABS: Albumin Level 4.3 g/dL (3.5-5.0); Calcium 9.4 mg/dL (8.4-10.2)
[2025-01-17 16:45] LABS: Thyroid Stimulating Hormone 0.98 uIU/mL (0.32-4.0)
--- OUTSIDE RECORDS SUMMARY | 2025-01-17 18:06 | XMS_ITS | Encounter Summary ---
Author Organization [facility] Address [address] [place] [address] Phone Care Team Providers Care Group Social Worker Name Role Phone David Orozco MD Primary Care Provider [phone] Yamila Watters MD Primary Care Provider + Encounter Details Date Type Department Care Team (Late st Contact Info) Description 02/25/2024 Procedure Pass [facility] @ [address] [address] Social History Tobacco Use Types Packs/Day Years Used Date Smoking Tobacco: Former Cigarettes 1 20 0 08/31/1964 - 08/31/1984 Smokeless Tobacco: Never Alcohol Use Standard Drinks/Week Comments Not Currently 0 (1 standard drink = 0.6 oz pur e alcohol) 4 x yr Education Answer Date Recorded Are you interested in more education? Not on anam e 08/01/2022 Are you concerned about learning? Not on file 08/01/2022 No 08/01/2022 No 08/01/2022 Digital Access Answer Date Recorded No 09/01/2022 No 09/01/2022 Reliable internet access at home? Not on file 09/01/2022 Device with a working camera? Not on file Intimate Partner Violence Answer Date R ecorded Are you denied basic needs s uch as food, clothing, or medical care? No 02/25/2024 In the past 12 months have y ou been in a relationship with a person who hurts, threatens, or tries to control you? No 02/25/2024 Are you denied basic needs s uch as food, clothing, or medical care? No 02/25/2024 In the past 12 months have y ou been in a relationship with a person who hurts, threatens, or tries to control you? No 02/25/2024 Comments No Sex and Gender Information Value Date Recorded Sex Assigned at Female 10/05/2023 1:37 PM EDT Legal Sex Female 10:05 PM EDT Gender Identity Female 10/05/2023 1:37 PM EDT Sexual Orientation Not on file documented as of this encounter Plan of Treatment Upcoming Encounters Date Type Department Care Team (Late st Contact Info) Description 02/23/2025 11:20 AM EST Office Visit [facility] [address] [place] [address] Yony Locke MD [address] [place] [address] [email or web address] 03/21/2025 12:00 PM EST Office Visit [facility] Department of Orthopaedics [address] [place] [address] Bernard Velasquez MD [address] [place] [address] [email or web address] documented as of this encounter Visit Diagnoses Not on filedocumented in this encounter Care Teams Group Social Worker Relationship Specialty Start Date End Date David Orozco MD PCP - General Internal Medicine 03/16/19 03/07/24 Yamila Watters MD [address] [place] [address] [email or web address] PCP - General Family Medicine 03/08/24 documented as of this encounter Additional Source Comments The information contained in this document represents components of the legal health record. It is not the complete legal health record.[facility]
--- OUTSIDE RECORDS SUMMARY | 2025-01-17 18:06 | XMS_ITS | Clinical Summary ---
Author Organization [facility] Address [address] [place] [address] [place] [phone] Phone Care Team Providers Care Almond Blancher Name Role Phone Yamila Watters MD Primary Care Provider + Allergies Active Allergy Reactions Criticality Noted Date Comments Adhesive Unknown,Other (See Comments) 05/17/2020 blisters Cephalexin Shortness Of Breath High 11/10/2019 Keflex IV Difficulty breathing Latex, Natural Rubber Swelling 05/06/2016 Levofloxacin 10/19/2012 Burning at iv site insertion Opioids - Morphine Analogues Hives High 09/28/2009 Hives Medications carboxymethylcell ulose (REFRESH TEARS) 0.5 % Drop as directed 012 Active cycloSPORINE (RESTASIS) 0.05 % suspension Place 1 drop into each eye. Active albuterol 90 mcg/actuation inhaler INHALE 1 TO 2 PUFFS EVERY 4 TO 6 HOURS NEEDED. 013 Active famotidine (PEPCID) 40 MG tablet Take 40 mg by mouth daily. Active levothyroxine (SYNTHROID, LEVOTHROID) 75 MCG tablet One tab daily 020 Active losartan (COZAAR) 50 MG tablet Take 50 mg by mouth daily. Active albuterol (PROAIR HFA) 90 mcg/actuation inhaler ProAir HFA Active aspirin 81 MG EC tablet Take 1 tablet (81 mg total) by mouth 2 (two) times a day. 88 tablet 025 Active Additional Information Patient not taking.Reported on 12/15/2024 ondansetron (ZOFRAN-ODT) 4 MG disintegrating tablet Take 1 tablet (4 mg total) by mouth every 6 (six) hours as needed for nausea. 10 tablet Active Additional Information Patient not taking.Reported on 12/09/2024 senna (SENOKOT) 8.6 mg tablet Take 2 tablets by mouth 2 (two) times a day. 30 tablet Active HYDROmorphone (DILAUDID) 2 MG tablet Take 0.5-1 tablets (1-2 mg total) by mouth every 4 (four) hours as needed for pain (specific location in comments) (severe pain). Partial fill ok 50 tablet Active Additional Information Patient taking differently: 0.5-1 tabletOral Every 4 hours PRN, pain (specific location in comments), severe pain, Partial fill ok, Reported on 12/15/2024 acetaminophen (TYLENOL) 325 mg tablet Take 2 tablets (650 mg total) by mouth 4 (four) times a day. 60 tablet Active traMADoL (ULTRAM) 50 mg tablet Take 1-2 tablets (50-100 mg total) by mouth every 8 (eight) hours as needed for pain (specific location in comments). 50 tablet Active Additional Information Patient not taking.Reported on 12/15/2024 raloxifene (EVISTA) 60 mg tablet 1 tablet Orally Once a day Active apixaban (ELIQUIS) 5 mg tablet Take 1 tablet (5 mg total) by mouth 2 (two) times a day. 60 tablet 1 Active enoxaparin (LOVENOX) 60 mg/0.6 mL Syrg subcutaneous syringe Inject 0.6 mL (60 mg total) under the skin every 12 (twelve) hours for 7 days. 8.4 mL 025 2024 Discontinued apixaban (ELIQUIS) 5 mg tablet Take 1 tablet (5 mg total) by mouth 2 (two) times a day. Take 2 tabs PO BID for 7 days, then 1 tab PO BID for the remainder of the treatment course 70 tablet 025 2024 Discontinued(R eorder) apixaban (ELIQUIS) 5 mg tablet Take 1 tablet (5 mg total) by mouth 2 (two) times a day. Take 2 tabs PO BID for 7 days, then 1 tab PO BID for the remainder of the treatment course 60 tablet 1 025 2024 Discontinued Active Problems Problem Noted Date Diagnosed Date History of total right knee replacement 11/26/19 25 Primary osteoarthritis of left knee 11/25/2024 Hypothyroidism 03/08/2024 Stage 3a chronic kidney disease 03/08/2024 Overview (03/08/2024): Per chart review meeting GFR criteria Complex tear of lateral meni scus of left knee as current injury 02/25/2024 Chondromalacia of left knee 02/25/2024 Seasonal allergic rhinitis 01/20/2022 Essential hypertension 12/04/2021 Raynaud's disease 07/08/2021 Hyperlipidemia 07/08/2021 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 05/17/2020 Digital mucous cyst of finger of right hand 08/05 Osteoporosis, post-menopausal 09/07/2017 Gastroesophageal reflux disease with esophagitis 10/19/2012 Overview (03/08/2024): Chronic Reflux Esophagitis Encounters Date Type Department Care Team Description 12/16/2024 9:30 AM EDT Home Care Visit [facility] [address] [place] [phone] Lula Trevino, PT PT OASIS DISCHARGE VISIT 12/15/2024 1:20 PM EDT [facility] Visit [facility] [address] [place] [address] Ricarda Gutiérrez PA-C History of total left knee replacement (Primary Dx); Primary osteoarthritis of left knee; Acute deep vein thrombosis (DVT) of calf muscle vein of left lower extremity 12/15/2024 12:20 PM EDT - 12/15/2024 11:59 PM EDT Hospital Encounter [facility] MSK Diagnostic X-ray Imaging, Christine [address] [place] [address] Ricarda Gutiérrez PA-C Discharge Disposition: Home or Self Care 12/15/2024 E-Consult [facility] [address] [place] [phone] Paulo Coleman MD 12/14/2024 9:30 AM EDT Home Care Visit [facility] [address] [place] [phone] Lula Trevino, PT PT HOME VISIT 12/13/2024 Orders Only [facility] Department of Orthopaedics [address] [place] [address] Victor MAlice Pain (Primary Dx) 12/12/2024 1:30 PM EDT Home Care Visit [facility] [address] [place] [phone] Mali Denton, OT OT DISCIPLINE DISCHARGE VISIT 12/12/2024 10:00 AM EDT Home Care Visit [facility] [address] [place] [phone] Lula Trevino, PT PT HOME VISIT 12/12/2024 Orders Only [facility] Department of Orthopaedics [address] [place] [address] Bernard Velasquez MD 12/10/[address] [address] Humza Bill MD 12/09/2024 10:00 PM EDT - 12/09/2024 10:38 PM EDT Emergency [facility] [address] [place] [address] Arvind Rogers, DO Discharge Disposition: Home or Self Care 12/09/2024 3:40 PM EDT Office Visit [facility] [address] [address] Katie Moran, AUTOM[employer] GLAZIER Dermatitis, unspecified (Primary Dx) 12/09/2024 9:30 AM EDT Home Care Visit [facility] [address] [place] [phone] Lula Trevino, PT PT HOME VISIT 12/09/2024 Documentation [facility] [address] [place] [address] Ricarda Gutiérrez PA-C 12/09/2024 Episode Documentation Update [facility] [address] [place] [phone] Thao Ernst 12/08/2024 1:30 PM EDT Home Care Visit [facility] [address] [place] [phone] Mali Denton, OT OT HOME VISIT 12/07/2024 10:30 AM EDT Home Care Visit [facility] [address] [place] [phone] Lula Trevino, PT PT HOME VISIT 12/06/2024 1:30 PM EDT Home Care Visit [facility] [address] [place] [address] Mali Denton, OT OT HOME VISIT 12/05/2024 2:00 PM EDT Home Care Visit [facility] [address] [place] [phone] Shaneka Steven, PT PT HOME VISIT 12/03/2024 1:00 PM EDT Home Care Visit [facility] [address] [place] [address] Ruddy Valerio, PT PT HOME VISIT 12/02/2024 10:00 AM EDT Home Care Visit [facility] [address] [place], [place] [phone] Mali Denton, OT OT EVALUATION 12/01/2024 10:00 AM EDT Home Care Visit [facility] [address] [place], [place] [phone] Lula Trevino, PT PT HOME VISIT 11/30/2024 9:00 AM EDT Home Care Visit [facility] [address] [place] [phone] Lula Trevino, PT PT OASIS START OF CARE (SOC) 11/30/2024 Plan of Care Documentation [facility] [address] [place], [place] [phone] 11/30/2024 Orders Only [facility] Department of Orthopaedics [address] [place] [address] Ricarda Gutiérrez PA-C 11/28/2024 Orders Only [address] [address] Barbara Saucedo NP History of total left knee replacement (TKR) (Primary Dx) 11/25/2024 11:47 AM EDT Anesthesia Event [facility] Peri [address]th [address] [place] [address] Annika Arthur MD O'Leary, Paul Richard, CRNA 11/25/2024 11:45 AM EDT - 11/25/2024 2:26 PM EDT Surgery [address] [address] Bernard Velasquez MD ARTHROPLASTY TOTAL KNEE 11/25/2024 9:40 AM EDT - 11/29/2024 2:26 PM EDT Hospital Encounter [address] [address] Bernard Velasquez MD Discharge Disposition: Home-Health Care [facility] 11/25/2024 Procedure Pass [address] [address] 11/14/2024 Orders Only [facility] Orthopedics [facility] [address] [place] [address] Hannah Benson PA-C 11/14/2024 Orders Only [facility] [address] [place], [place] [phone] Santhosh Live MD 11/11/2024 8:40 AM EDT Pre-Admission Testing [address] [address] Bernard Velasquez MD 11/01/2024 10:20 AM EDT Telemedicine [facility] Orthopedics at [place] [address] [facility] [address] [place] [address] Ricarda Gutiérrez PA-C Primary osteoarthritis of left knee (Primary Dx); History of total left knee replacement 10/28/2024 Refill [facility] Orthopedics [facility] [address] [place] [address] Lynne Stewart PA-C Medication Refill from Last 3 Months Immunizations No known immunizations Social History Tobacco Use Types Packs/Day Years Used Date Smoking Tobacco: Former Cigarettes 1 20 0 08/31/1964 - 08/31/1984 Smokeless Tobacco: Never Tobacco Cessation:Counseling Given: Not Answered Alcohol Use Standard Drinks/Week Comments Not Currently 0 (1 standard drink = 0.6 oz pur e alcohol) 4 x yr Home Health Assessment: Transportation Answer Date Recorded Lack of Transportation (Medical) No 12/16/2024 Lack of Transportation (Non-Medical) No 12/16/2024 Patient Unable or Declines to Respond No 12/16/2024 Education Answer Date Recorded Are you interested in more education? Not on anam e 08/01/2022 Are you concerned about learning? Not on file 08/01/2022 No 08/01/2022 No 08/01/2022 Food Answer Date Recorded Within the past 6 months we worried whether our food would run out before we got money to buy more. Never True 11/25/2024 Within the past 6 months the food we bought just didn't last and we didn't have enough money to get more. Never True Residential Stability Answer Date Recor ded What is your housing situation today? I have lucian sing 11/25/2024 How many times have you move d in the past 12 months? Zero (I did not move) 11/25/2024 Paying for Meds Answer Date Recorded Do you have trouble paying for medicines? No 11/25/2024 Paying Utility Bills Answer Date Record ed Do you have trouble paying your heating or elect ricity bill? No 11/25/2024 Transportation Answer Date Recorded Has the lack of transportati on kept you from medical appointments or from getting medications? No 11/25/2024 Digital Access Answer Date Recorded No 11/25/2024 Yes 11/25/2024 Do you have reliable internet access at home? Ye s 11/25/2024 Do you have a device (e.g., phone, tablet, computer) with a working camera? Yes 11/25/2024 Intimate Partner Violence Answer Date R ecorded Are you denied basic needs s uch as food, clothing, or medical care? No 12/09/2024 In the past 12 months have y ou been in a relationship with a person who hurts, threatens, or tries to control you? No 12/09/2024 Are you denied basic needs s uch as food, clothing, or medical care? No 12/09/2024 In the past 12 months have y ou been in a relationship with a person who hurts, threatens, or tries to control you? No 12/09/2024 Comments No Sex and Gender Information Value Date Recorded Sex Assigned at Female 10/05/2023 1:37 PM EDT Legal Sex Female 10:05 PM EDT Gender Identity Female 10/05/2023 1:37 PM EDT Sexual Orientation Not on file Last Filed Vital Signs Vital Sign Reading Time Taken Comments Blood Pressure 138/78 12/12/2024 1:54 PM EDT Pulse 68 12/12/2024 1:54 PM EDT Temperature 36.6 C (97.9 F) 12/15/2024 1:38 PM EDT Respiratory Rate 16 12/12/2024 1:54 PM EDT Oxygen Saturation 98% 12/12/2024 1:54 PM EDT Inhaled Oxygen Concentration - - Weight 59 kg (130 lb) 12/09/2024 6:23 PM EDT Height 165.1 cm (5' 5 ) 12/09/2024 6:23 PM EDT Body Mass Index 21.63 12/09/2024 6:23 PM EDT Plan of Treatment Upcoming Encounters Date Type Department Care Team (Late st Contact Info) Description 02/23/2025 11:20 AM EST Office Visit [facility] [address] [place] [address] Yony Locke MD [address] [place] [address] [email or web address] 03/21/2025 12:00 PM EST Office Visit [facility] [address] [place] [address] Bernard Velasquez MD [address] [place] [address] [email or web address] Health Maintenance Due Date Last Done Comments LIPID PANEL 1948 TSH LEVEL 1948 DEPRESSION SCREENING 1960 HEPATITIS C SCREENING 02/09/1966 ZOSTER VACCINES (2 of 2) 09/13/2024 025, 08/02/2015, 08/02/2015 INFLUENZA VACCINE (#1) 2024 , 01/19/2023, 01/19/2022, Additional history exists COVID-19 VACCINE ( season) 2024 07/19/2024, 01/01/2024, 02/02/2023, Additional history exists BLOOD PRESSURE 06/15/2025 12/16/2024 CREATININE LEVEL 12/09/2025 12/09/2024, , 11/28/2024, Additional history exists POTASSIUM LEVEL 12/09/2025 12/09/2024, 11/05, 11/28/2024, Additional history exists Adult Td,Tdap Booster 12/11/2032 12/11/2022 , 06/11/2012, 03/15/2010, Additional history exists PNEUMOCOCCAL VACCINES (50+ years) Completed 03/10/2018, 07/12/2013, 03/27/2008 RSV VACCINE Completed 01/05/2023 OSTEOPOROSIS SCREENING INITIAL (ONE-TIME) Completed 01/26/2024, 02/24/2023, 10/03/2020, Additional history exists SMOKING STATUS SCREENING (Once After 26 Yrs) Completed 12/09/2024 HEPATITIS A VACCINES Aged Out No long er eligible based on patient's age to complete this topic HIB VACCINES Aged Out No longer eligi ble based on patient's age to complete this topic MENINGOCOCCAL VACCINES (ACWY) Aged Out No longer eligible based on patient's age to complete this topic MENINGOCOCCAL VACCINES (B) Aged Out N o longer eligible based on patient's age to complete this topic Medical Devices Implanted Type Area Ui Engineer Device Identifier Shelf Expiration Date Model / Serial / Lot Knee Insert 4 9mm Size 3 Agnes Ii Polyethylene Cruciate Retaining Cs/1bx/1ea - [id number] Implanted:Qty: 1 on 11/25/2024 by Bernard Velasquez MD at [facility] NODATA Left: Knee [employer] 10/18/2033 [id number] / / [id number] Knee Baseplate Sz 3 Implant Tibial Base Non Porous Cemented Ti Alloy Agnes [employer]i Lt 03a Cs/1bx/1ea - [id number] Implanted:Qty: 1 on 11/25/2024 by Bernard Velasquez MD at [facility] STANDARD Left: Knee [employer] 03/01/2034 [id number] / / [id number] Cement Bone Simplex P Tobramycin 41g Powder And 20ml Ampoule Antibiotic Impregnated Full Dose Bx/10ea - [id number] Implanted:Qty: 2 on 11/25/2024 by Bernard Velasquez MD at [facility] STANDARD Left: Knee [employer] 03/05/2026 [id number] / / [id number] Screw Screw Right: Knee Suture Abdomen Knee Insert Size 5 Femoral Head Legion Cruciate Narrow Left - [id number] Implanted:Qty: 1 on 11/25/2024 by Bernard Velsaquez MD at [facility] Left: Knee [employer] 07/10/2034 [id number] / / [id number] Knee Implant 7.5x35mm Patella Agnes Ii - [id number] Implanted:Qty: 1 on 11/25/2024 by Bernard Velasquez MD at [facility] Left: Knee [employer] 05/07/2034 [id number] / / [id number] Procedures Procedure Name Priority Date/Time Associated Diagnosis Comments XR KNEE 3 VIEW (LEFT) Routine 12/15/2024 1:13 PM EDT Pain US LOWER EXTREMITY VEINS DUPLEX (LEFT) Routine 12/09/2024 8:15 PM EDT Right leg pain BASIC METABOLIC PANEL STAT 12/09/2024 7:10 PM EDT CBC AND DIFFERENTIAL STAT 12/09/2024 7:10 PM EDT BASIC METABOLIC PANEL Routine 11/29/2024 5:39 AM EDT BASIC METABOLIC PANEL Timed 11/28/2024 2:00 PM EDT CBC Routine 11/28/2024 5:55 AM EDT BASIC METABOLIC PANEL Routine 11/28/2024 5:55 AM EDT CBC Routine 11/27/2024 7:41 AM EDT BASIC METABOLIC PANEL Routine 11/27/2024 7:41 AM EDT CBC Routine 11/26/2024 6:10 AM EDT BASIC METABOLIC PANEL Routine 11/26/2024 6:10 AM EDT ANES SPINAL Routine 11/25/2024 12:34 PM EDT MODIFIER ARTHROPLASTY TOTAL KNEE [employer] KNEE 11/25/2024 11:49 AM EDT Primary osteoarthritis of left knee Special Needs [employer] legion primary total knee replacement system, stem extension on backup SD TOTAL KNEE ARTHROPLASTY 11/25/2024 11:49 AM EDT Primary osteoarthritis of left knee Special Needs [employer]ion primary total knee replacement system, stem extension on backup from Last 3 Months Results * XR KNEE 3 VIEW (LEFT) (12/15/2024 1:13 PM EDT) Anatomical Region Laterality Modality Knee Left Computed Radiogr aphy 12/15/2024 3:29 PM EDT Impressions 12/15/2024 4:37 PM EDT Left total knee arthroplasty. No evidence of hardware complication. Large effusion. ATTESTATION: Sebastian Márquez, as teaching physician have reviewed the images, if any, for this patient's exam, and if necessary, have edited the report originally created by Grace Martinez. Narrative 12/15/2024 4:37 PM EDT XR KNEE 3 VIEW (LEFT) Referring clinician's provided indication for this examination in [facility]: Pain COMPARISON: XR BONE LENGTH STUDY ; MRI KNEE WITHOUT CONTRAST (LEFT) ; XR KNEE 1-2 VIEWS (LEFT) FINDINGS: Left Knee: Total knee arthroplasty. Hardware is intact and in anatomic position. No periprosthetic lucency or fracture. Large joint effusion. Soft tissue swelling anterior to the knee. Similar calcifications. Frontal and sunrise evaluation of the right knee demonstrates postsurgical changes of prior PCL reconstruction and posterolateral corner reconstruction with no evidence of periprosthetic lucency or fracture. Tricompartmental osteophytes. Mild to moderate joint space narrowing of the medial and lateral tibiofemoral compartments and the medial patellofemoral compartment. Chondrocalcinosis of the tibiofemoral and patellofemoral compartments. Procedure Note Sebastian Lu MD - 12/15/2024 XR KNEE 3 VIEW (LEFT) Referring clinician's provided indication for this examination in [facility]:Pain COMPARISON: XR BONE LENGTH STUDY ; MRI KNEE WITHOUT CONTRAST(LEFT) ; XR KNEE 1-2 VIEWS (LEFT) FINDINGS: Left Knee: Total knee arthroplasty. Hardware is intact and in anatomicposition. No periprosthetic lucency or fracture. Large joint effusion.Soft tissue swelling anterior to the knee. Similar calcifications. Frontal and sunrise evaluation of the right knee demonstrates postsurgicalchanges of prior PCL reconstruction and posterolateral cornerreconstruction with no evidence of periprosthetic lucency or fracture.Tricompartmental osteophytes. Mild to moderate joint space narrowing ofthe medial and lateral tibiofemoral compartments and the medialpatellofemoral compartment. Chondrocalcinosis of the tibiofemoral andpatellofemoral compartments. IMPRESSION: Left total knee arthroplasty. No evidence of hardware complication. Largeeffusion. ATTESTATION: Sebastian Márquez, as teaching physician have reviewed theimages, if any, for this patient's exam, and if necessary, have edited thereport originally created by Grace Martinez. us Ricarda Gutiérrez PANaomi IMG XR LOWER EXTREMITY Fi nal Result * US Lower Extremity Veins Duplex (Left) (12/09/2024 8:15 PM EDT) MGB IMG OPTICS MANUFACTURING TECHNICIAN COMMENT L gastrocnemius vein DVT [facility] Anatomical Region Laterality Modality Hip Left, Thigh Left, Knee L eft, Leg Left, Ankle Left, Foot Left Ultrasound 12/09/2024 10:1 3 PM EDT Impressions 12/09/2024 10:18 PM EDT 1. Deep venous thrombosis of the left gastrocnemius vein. 2. Complex 6.5 cm left popliteal fossa avascular collection, likely Hayes's cyst versus postsurgical seroma. A clinically significant result was initiated on 12/09/2024 10:18 PM, Message ID [id number]. Narrative 12/09/2024 10:18 PM EDT US LOWER EXTREMITY VEINS DUPLEX (LEFT) Referring clinician's provided indication for this examination in Epic: Left Leg Pain; post l knee replacemnt, concern for dvt Review of the Electronic Medical Record reveals an additional history of: Status post TKA 11/25/24. TECHNIQUE: Lower extremity venous ultrasound with color and spectral Doppler. COMPARISON: None FINDINGS: Left lower extremity Common femoral vein: Normal compressibility and flow characteristics. Femoral vein: Normal compressibility and flow characteristics. Proximal profunda femoral vein: Normal compressibility. Popliteal vein: Normal compressibility and flow characteristics. Posterior tibial veins: Normal compressibility. Peroneal veins: Normal compressibility. Gastrocnemius veins: One of the paired veins is distended and noncompressible, without color Doppler flow. Great saphenous vein: Normal compressibility at the saphenofemoral junction. Other: Bilateral heterogeneous hypoechoic avascular collection in the popliteal fossa measuring 6.5 x 3.1 x 1.2 cm. Right lower extremity Right common femoral vein: Normal compressibility and flow characteristics. Procedure Note Azra Barfield MD - 12/09/2024 US LOWER EXTREMITY VEINS DUPLEX (LEFT) Referring clinician's provided indication for this examination in Epic:Left Leg Pain; post l knee replacemnt, concern for dvt Review of the Electronic Medical Record reveals an additional history of:Status post TKA 11/25/24. TECHNIQUE: Lower extremity venous ultrasound with color and spectralDoppler. COMPARISON: None FINDINGS: Left lower extremity Common femoral vein: Normal compressibility and flow characteristics. Femoral vein: Normal compressibility and flow characteristics. Proximal profunda femoral vein: Normal compressibility. Popliteal vein: Normal compressibility and flow characteristics. Posterior tibial veins: Normal compressibility. Peroneal veins: Normal compressibility. Gastrocnemius veins: One of the paired veins is distended andnoncompressible, without color Doppler flow. Great saphenous vein: Normal compressibility at the saphenofemoraljunction. Other: Bilateral heterogeneous hypoechoic avascular collection in thepopliteal fossa measuring 6.5 x 3.1 x 1.2 cm. Right lower extremity Right common femoral vein: Normal compressibility and flowcharacteristics. IMPRESSION: 1. Deep venous thrombosis of the left gastrocnemius vein. 2. Complex 6.5 cm left popliteal fossa avascular collection, likelyBaker's cyst versus postsurgical seroma. A clinically significant result was initiated on 12/09/2024 10:18 PM,Message ID [id number]. us Leonel Fuentes MD US VASCULAR Final Resul t * (ABNORMAL) CBC and differential (12/09/2024 7:10 PM EDT) WBC 15.30(H) 4.00 - 11.00 K/uL [facility] RBC 3.59(L) 4.00 - 5.20 M/uL [facility] HGB 10.7(L) 12.0 - 16.0 g/dL [facility] HCT 31.9(L) 36.0 - 46.0 % [facility] PLT 973(H) 150 - 450 K/uL [facility] MCV 88.9 80.0 - 100.0 fL [facility] MCH 29.8 27.0 - 31.0 pg [facility] MCHC 33.5 32.0 - 36.0 g/dL [facility] RDW 13.2 11.5 - 14.5 % [facility] MPV 8.9 8.4 - 12.0 fL [facility] NRBC 0.00 0.00 /100 WBCs [facility] ABSOLUTE NRBC 0.00 0.00 K/uL [facility] DIFF METHOD Auto [facility] NEUTS 57.8 48.0 - 76.0 % [facility] LYMPHS 23.4 18.0 - 41.0 % [facility] MONOS 9.4 4.0 - 11.0 % [facility] EOS 7.5(H) 0.0 - 5.0 % [facility] BASOS 1.1 0.0 - 1.5 % [facility] Granulocytes, immature (%) 0.8 0.0 - 0.9 % [facility] ABSOLUTE NEUTS 8.83(H) 1.92 - 7.60 K/uL [facility] ABSOLUTE LYMPHS 3.58 0.72 - 4.10 K/uL [facility] ABSOLUTE MONOS 1.44(H) 0.16 - 1.10 K/uL [facility] ABSOLUTE EOS 1.15(H) 0.00 - 0.50 K/uL [facility] ABSOLUTE BASOS 0.17(H) 0.00 - 0.15 K/uL [facility] Granulocytes, immature 0.13(H) 0.00 - 0.09 K/uL [facility] Blood 12/09/2024 7:10 PM EDT 12/09/2024 7:37 PM EDT us Leonel Fuentes MD LAB BLOOD ORDERABLES Final Result [facility] [address] [place] [address] * (ABNORMAL) Basic metabolic panel (12/09/2024 7:10 PM EDT) Only the most recent of6 resultswithin the time period is included. SODIUM 129(L) 133 - 146 mmol/L [facility] CHLORIDE 95(L) 96 - 108 mmol/L [facility] POTASSIUM 4.1 3.3 - 5.1 mmol/L [facility] CO2 23 21 - 35 mmol/L [facility] BUN 11 6 - 19 mg/dL [facility] CREATININE 0.90 0.5 - 1.5 mg/dL [facility] GLUCOSE 105(H) 70 - 99 mg/dL [facility] CALCIUM 9.7 8.4 - 10.3 mg/dL [facility] EGFR 66 >59 mL/min/1.7 3m2 [facility] Comment:Estimated glomerular filtration rate calculated using the CKD-EPI refit equation. ANION GAP 15 10 - 20 mmol/L [facility] Blood 12/09/2024 7:10 PM EDT 12/09/2024 7:37 PM EDT us Leonel Fuentes MD LAB BLOOD ORDERABLES Final Result [address] [address] * (ABNORMAL) CBC (11/28/2024 5:55 AM EDT) Only the most recent of3 resultswithin the time period is included. Pathologist [facility] WBC 13.87(H) 4.00 - 11.00 K/uL [facility] RBC 3.30(L) 4.00 - 5.20 M/uL [facility] HGB 9.8(L) 12.0 - 16.0 g/dL [facility] HCT 30.0(L) 36.0 - 46.0 % [facility] PLT 306 150 - 450 K/uL [facility] MCV 90.9 80.0 - 100.0 fL [facility] MCH 29.7 27.0 - 31.0 pg [facility] MCHC 32.7 32.0 - 36.0 g/dL [facility] RDW 13.1 11.5 - 14.5 % [facility] MPV 10.2 8.4 - 12.0 fL [facility] NRBC 0.00 0.00 /100 WBCs [facility] ABSOLUTE NRBC 0.00 0.00 K/uL [facility] Blood 11/28/2024 5:55 AM EDT 11/28/2024 6:16 AM EDT us Ricarda Gutiérrez PA-C LAB BLOOD ORDERABLES Gayle canales Result Performing Organization Address City/State/[facility] Co de Phone Number [address] [address] * Spinal (11/25/2024 12:34 PM EDT) Narrative Annika Arthur MD - 11/25/2024 12:34 PM EDT Annika Arthur MD 11/25/2024 12:34 PM Spinal Placement Procedure Note: Performed by: anesthesiologist Anesthesiologist: Annika Arthur MD [place] Protocol performed: consent obtained, patient identified with 2 identifiers, correct procedure verified, correct site and laterality confirmed, verified equipment, coagulation status reviewed and implant history reviewed. Procedure details: Patient position: sitting Prep: chloraprep Approach: midline Location: L4-5 Needle: Needle type: Kristin Needle gauge: 25 Needle length: standard CSF was aspirated Outcome: Paresthesia: no us Annika Arthur MD [place] ANESTHESIA Final Result from Last 3 Months Insurance #[address] [place] [address] MEDICARE PART A & B MEDICARE REPLACEMENT [address] [place] [address] MEDICARE PART A & B MEDICARE REPLACEMENT MEDICARE PART A [place] [address] [place] [address] MEDICARE REPLACEMENT UNIT [address] [place], [place] MEDICARE PART A & B Member Subscriber Plan / Payer (Ef fective 2023-) Name:Bhavana Morton Member ID:[id number] Relation to Subscriber:Self Name:Bhavana Morton Subscriber ID:[id number] Payer ID:[id number] Group ID:Not on file Type:Medicare Address: [employer] 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 It is not the complete legal health record.[facility]
--- OUTSIDE RECORDS SUMMARY | 2025-01-17 18:06 | XMS_ITS | Encounter Summary ---
Author Organization [facility] Address [address] [place] [address] [place] [address] Phone Care Team Providers Care Biofuels Processing Technician Name Role Phone David Orozco MD Primary Care Provider [phone] Yamila Watters MD Primary Care Provider + Encounter Details Date Type Department Care Team (Late Contact Info) Description 10/17/2019 Prep for Surgery [facility] [address] [place] [address] Tammy Yung MD [address] [place] [address] Orthopedics & Sports Medicine, [facility] [place] [address] [email or web address] Social History Tobacco Use Types Packs/Day Years Used Date Smoking Tobacco: Former Cigarettes Q uit: 08/31/1984 Smokeless Tobacco: Never Comments Unknown Sex and Gender Information Value Date Recorded Sex Assigned at Female 10/05/2023 1:37 PM EDT Legal Sex Female 10:05 PM EDT Gender Identity Female 10/05/2023 1:37 PM EDT Sexual Orientation Not on file documented as of this encounter Plan of Treatment Upcoming Encounters Date Type Department Care Team (Late Contact Info) Description 02/23/2025 11:20 AM EST Office Visit [facility] Cardiovascular Clinic [address] [place] [address] Yony Locke MD [address] [place], [place] [phone] [email or web address] 03/21/2025 12:00 PM EST Office Visit [facility]edics [address] [place] [address] Bernard Velasquez MD [address] [place] [address] [email or web address] documented as of this encounter Visit Diagnoses Not on filedocumented in this encounter Care Teams Biofuels Processing Technician Relationship Specialty Start Date End Date David Orozco MD PCP - General Internal Medicine 03/16/19 03/07/24 Yamila Watters MD [address] [place] [address] [email or web address] PCP - General Family Medicine 03/08/24 documented as of this encounter Additional Source Comments The information contained in this document represents components of the legal health record. It is not the complete legal health record.[facility]
--- OUTSIDE RECORDS SUMMARY | 2025-01-17 18:06 | XMS_ITS | Encounter Summary ---
Author Organization [facility] Address [address] [place] [address] Phone Care Team Providers Care Fish Egg Packer Name Role Phone Yamila Watters MD Primary Care Provider + Encounter Details Date Type Department Care Team (Latest Contact Info) Description 08/15/2024 Ancillary Orders [facility] - Orthopedics [address] [address] Eddi Rae MD [address] [place] [address] [email or web address] Chronic pain of left knee (Primary Dx); Effusion of left knee; S/P left knee arthroscopy Social History Tobacco Use Types Packs/Day Years [...] Description 02/23/2025 11:20 AM EST Office Visit [facility] [address] [place] [address] Yony Locke MD [address] [place] [phone] [email or web address] 03/21/2025 12:00 PM EST [facility] [address] [place] [address] Bernard Velasquez MD [address] [place] [address] [email or web address] documented as of this encounter Results * XR KNEE 1-2 VIEWS (BILATERAL) (08/15/2024 11:28 AM EDT) Anatomical Region Laterality Modality Knee Bilateral, Knee Right, Knee Left Computed Radiography 08/15/2024 6:13 PM EDT Impressions 08/15/2024 6:21 PM EDT FINDINGS/IMPRESSION: There are sequela of posterior cruciate ligament and posterolateral corner reconstruction in unchanged alignment and without evidence of hardware complication. There is no evidence of acute fracture, subluxation, or dislocation. There is chondrocalcinosis and moderate medial/lateral tibiofemoral compartment joint space narrowing bilaterally. Evaluation for joint effusion on the right is limited in the absence of a lateral view. There is a small left joint effusion. There is vascular calcification. Narrative 08/15/2024 6:21 PM EDT XR KNEE 1-2 VIEWS (BILATERAL), XR KNEE 1-2 VIEWS (LEFT) 08/15/2024 11:12 AM Referring clinician's provided indication for this examination in [facility]: Pain; Joint Pain COMPARISON: Left knee radiographs 12/28/2023, right knee radiographs 11/17/2022 Procedure Note Lacy Carr MD - 08/15/2024 XR KNEE 1-2 VIEWS (BILATERAL), XR KNEE 1-2 VIEWS (LEFT) 08/15/2024 11:12AM Referring clinician's provided indication for this examination in [facility]:Pain; Joint Pain COMPARISON: Left knee radiographs 12/28/2023, right knee radiographs11/17/2022 IMPRESSION: FINDINGS/IMPRESSION: There are sequela of posterior cruciate ligament and posterolateral cornerreconstruction in unchanged alignment and without evidence of hardwarecomplication. There is no evidence of acute fracture, subluxation, ordislocation. There is chondrocalcinosis and moderate medial/lateraltibiofemoral compartment joint space narrowing bilaterally. Evaluation forjoint effusion on the right is limited in the absence of a lateral view.There is a small left joint effusion. There is vascular calcification. us Eddi Rae MD IMG XR LOWER EXTREMITY Final R esult documented in this encounter Visit Diagnoses Diagnosis Chronic pain of left knee Effusion of left knee S/P left knee arthroscopy Chronic pain of left knee- Primary Effusion of left knee S/P left knee arthroscopy documented in this encounter Care Teams Fish Egg Packer Relationship Specialty Start Date End Date Yamila Watters MD [address] [place] [address] [email or web address] PCP - General Family Medicine 03/08/24 documented as of this encounter Additional Source Comments The information contained in this document represents components of the legal health record. It is not the complete legal health record.[facility]
--- OUTSIDE RECORDS SUMMARY | 2025-01-17 18:06 | XMS_ITS | Encounter Summary ---
Author Organization [facility] Address [address] [facility] [address] [place] [address] Phone Care Team Providers Care Metrology Engineer Name Role Phone Yamila Watters MD Primary Care Provider + Encounter Details Date Type Department Care Team (Late st Contact Info) Description 08/15/2024 Procedure Pass [facility], [address] [address] Social History Tobacco Use Types Packs/Day Years [...] on file documented as of this encounter Last Filed Vital Signs Vital Sign Reading Time Taken Comments Blood Pressure - - Pulse - - Temperature - - Respiratory Rate - - Oxygen Saturation - - Inhaled Oxygen Concentration - - Weight 59 kg (130 lb) 08/16/2024 11:11 AM EDT Height 167.6 cm (5' 6 ) 08/16/2024 11:11 AM EDT Body Mass Index 20.98 08/16/2024 11:11 AM EDT documented in this encounter Plan of Treatment Upcoming Encounters Date Type Department Care Team (Late st Contact Info) Description 02/23/2025 11:20 AM EST Office Visit [facility] Cardiovascular Clinic [address] [place] [address] Yony Locke MD [address] [place] [address] [email or web address] 03/21/2025 12:00 PM EST Office [facility] [address] [place] [address] Bernard Velasquez MD [address] [place] [address] [email or web address] documented as of this encounter Visit Diagnoses Not on filedocumented in this encounter Care Teams Metrology Engineer Relationship Specialty Start Date End Date Yamila Watters MD [address] [place] [address] [email or web address] PCP - General Family Medicine 03/08/24 documented as of this encounter Additional Source Comments The information contained in this document represents components of the legal health record. It is not the complete legal health record.[facility]
--- OUTSIDE RECORDS SUMMARY | 2025-01-17 18:07 | XMS_ITS | Encounter Summary ---
Author Organization [facility] Address [address] [place] [address] [place] [address] Phone Care Team Providers Care Websphere Process Server Developer Name Role Phone David Orozco MD Primary Care Provider [phone] Yamila Watters MD Primary Care Provider + Encounter Details Date Type Department Care Team (Late st Contact Info) Description 11/04/2019 Procedure Pass [place] Admitting Dept - Virtual Department [address] [place] [address] Social History Tobacco Use Types Packs/Day Years Used Date Smoking Tobacco: Former Cigarettes 1 20 0 08/31/1964 - 08/31/1984 Smokeless Tobacco: Never Alcohol Use Standard Drinks/Week Comments Not Currently 0 (1 standard drink = 0.6 oz pur e alcohol) Comments No Sex and Gender Information Value Date Recorded Sex Assigned at Female 10/05/2023 1:37 PM EDT Legal Sex Female 10:05 PM EDT Gender Identity Female 10/05/2023 1:37 PM EDT Sexual Orientation Not on file documented as of this encounter Plan of Treatment Upcoming Encounters Date Type Department Care Team (Late st Contact Info) Description 02/23/2025 11:20 AM EST Office [facility] Cardiovascular Clinic [address] [place] [address] Yony Locke MD [address] [place] [address] [email or web address] 03/21/2025 12:00 PM EST Office Visit [facility] Department of Orthopaedics [address] [place] [address] Bernard Velasquez MD [address] [place] [address] [email or web address] documented as of this encounter Visit Diagnoses Not on filedocumented in this encounter Care Teams Websphere Process Server Developer Relationship Specialty Start Date End Date Daivd Orozco MD PCP - General Internal Medicine 03/16/19 03/07/24 Yamila Watters MD [address] [place] [address] [email or web address] PCP - General Family Medicine 03/08/24 documented as of this encounter Additional Source Comments The information contained in this document represents components of the legal health record. It is not the complete legal health record.[facility]
--- OUTSIDE RECORDS SUMMARY | 2025-01-17 18:07 | XMS_ITS | Encounter Summary ---
Author Organization [facility] Address [address] [place] [address] Phone Care Team Providers Care Manager Icu Name Role Phone Yamila Watters MD Primary Care Provider + Encounter Details Date Type Department Care Team (Late st Contact Info) Description 11/25/2024 Procedure Pass [facility] Periop 6th floor [address] [place] [address] Social History Tobacco Use Types Packs/Day Years [...] as food, clothing, or medical care? No 11/25/2024 In the past 12 months have y ou been in a relationship with a person who hurts, threatens, or tries to control you? Deferred 11/25/2024 Are you denied basic needs s uch as food, clothing, or medical care? No 11/25/2024 In the past 12 months have y ou been in a relationship with a person who hurts, threatens, or tries to control you? Deferred 11/25/2024 Comments No Sex and Gender Information Value Date Recorded Sex Assigned at Female 10/05/2023 1:37 PM EDT Legal Sex Female 10:05 PM EDT Gender Identity Female 10/05/2023 1:37 PM EDT Sexual Orientation Not on file documented as of this encounter Functional Status * Calculated C-SSRS Risk Score (Lifetime/Recent) Answer Date of Assessment Author No Risk Indicated 11/25/2024 3:29 PM EDT Louis Mackey RN * [place] Suicide Severity Rating Scale (Screener/Recent Self-Report) Question Answer Date of Assessment Author 1. Wish to be (Past 1 Month) No 11/25/2024 3:29 PM EDT Louis Mackey RN 2. Non-Specific Active Suicidal Thoughts (Past 1 Month) No 11/25/2024 3:29 PM EDT Louis Mackey RN 6. Suicidal Behavior (Lifetime) No 11/25/2024 3:29 PM EDT Louis Mackey RN documented as of this encounter Plan of Treatment Upcoming Encounters Date Type Department Care Team (Late st Contact Info) Description 02/23/2025 11:20 AM EST Office Visit [facility] Cardiovascular Clinic [address] [place] [address] Yony Locke MD [address] [place] [address] [email or web address] 03/21/2025 12:00 PM EST Office Visit [facility] Department of Orthopaedics [address] [place] [address] Bernard Velasquez MD [address] [place] [address] [email or web address] documented as of this encounter Visit Diagnoses Not on filedocumented in this encounter Care Teams Manager Icu Relationship Specialty Start Date End Date Yamila Watters MD [address] [place] [address] [email or web address] PCP - General Family Medicine 03/08/24 documented as of this encounter Additional Source Comments The information contained in this document represents components of the legal health record. It is not the complete legal health record.[facility]
--- OUTSIDE RECORDS SUMMARY | 2025-01-17 18:07 | XMS_ITS | Patient Health Record ---
Author Organization [facility] gabriela MartinesWeed Address [address] [facility] [place] [address] Care Team Providers Care Medical Transcription Editor Name Role Phone Ernesto KIRKPATRICK, David Primary Care Provider Carlo Thomas Unavailable [phone] Allergies Allergen (clinical drug ingredient) Drug/Non Drug Allergy documented on EMR Reaction Allergy Type Onset Date Status cefaclor Ceclor (uncoded) hives Allergy Act augie Levaquin Unknown Drug Allergy Active morphine Morphine hives Drug Allergy Active adhesive tape all tapes-bright red Drug Allergy Active Latex lDental lips broke out Drug Allergy Active Reason For Referral No Information Medications Medication SIG (Take, Route, Fr equency, Duration) Notes Start Date End Date Status Levothyroxine Sodium Active Evista 60 MG 1 tablet Orally Once a day Active Physical Therapy . . . 2-3x/week; Durat ion: 3-4 weeks Active Multivitamin Active Restasis Active Red Yeast Rice Activ e ProAir HFA Active [place] 3 Active Aleve Active Zantac Active Social History Tobacco Use: Social History Observation Description Date Details (start date - stop date) Former Smoker NA - NA Tobacco Use/Smoking Question Answer Notes Are you a: former smoker When did you stop smoking? 30 years ago Additional Findings: Tobacco Non-User Ex-heavy c igarette smoker (20-30/day) Alcohol Screen Question Answer Notes Did you have a drink containing alcohol in the p ast year? No Points 0 Interpretation Negative Tobacco use other than smoking: Question Answer Notes Are you an other tobacco user? No Problems Problem Type SNOMED Code ICD Code Onset Dates Problem Status W/U Status Risk Notes Problem Acquired hallux rigidus (4593716) Hallux rigidus, left foot (M20.22) Active confirmed Problem Acquired hallux rigidus (3332457) Hallux rigidus, right foot (M20.21) Active confirmed Plan Of Treatment Pending Test Test Name Order Date X ray : Foot, left 2V 08/04/2017 X ray : Foot, right 2V 08/04/2017 X ray : Foot, left 3V 09/18/2017 X ray : Foot, left 3V 10/30/2017 Insurance Providers Payer Name Payer Address Payer Phone Subscriber Number Group Number Insured Name Patient Relationship to Insured Coverage Start Date Coverage End Date [employer] [address] [place] [address] [id number] Bhavana Morton Self - patient is the insured 7 Medical (General) History Medical History History ICD Code asthma osteoarthritis Broken bones Diverticulosis Gall bladder problems Osteoporosis Reflux ( GERD) chronic sinusitis Measles Mumps Chicken pox Joint implants/screws Transfusions Arthritis Raynauds syndrome Basal cells Chondromalacia left knee Thyroid nodules, right (left thyroid rem christopher) Surgical History Surgery Date(Month/Year) splenectomy 1965 thoracotomy 1965 exploratory laparoscopy 1965 right knee arthroscopy-partial cartilage removal 1980 partial hysterectomy 1986 carpal tunnel surgery-rt hand 1992 Ulnar nerve release-left elbow 2001 left knee arthroscopy-lesion removal(Cho ndromalacia) 1984 gall bladder 2010 left shoulder rotator cuff tear repair 2 017 partial thyroidectomy 2017 carpal tunnel surgery-left hand 1993 left knee arthroscopy-partial carilage r emoval 2009 left knee arthroscopy-partial meniscus r emoval 2012
--- OUTSIDE RECORDS SUMMARY | 2025-01-17 18:07 | XMS_ITS | Encounter Summary ---
Author Organization [facility] Address [address] [place] [address] [place] [address] Phone Care Team Providers Care Select Banker Name Role Phone David Orozco MD Primary Care Provider [phone] Yamila Watters MD Primary Care Provider + Encounter Details Date Type Department Care Team (Late st Contact Info) Description 07/18/2020 Procedure Pass [address] [place] [address] Social History Tobacco Use Types Packs/Day Years [...] Description 02/23/2025 11:20 AM EST Office Visit [facility] Cardiovascular Clinic [address] [place] [address] Yony Locke MD [address] [place] [address] [email or web address] 03/21/2025 12:00 PM EST Office Visit [facility] Department of [facility]edics [address] [place] [address] Bernard Velasquez MD [address] [place] [address] [email or web address] documented as of this encounter Visit Diagnoses Not on filedocumented in this encounter Care Teams Select Banker Relationship Specialty Start Date End Date David Orozco MD PCP - General Internal Medicine 03/16/19 03/07/24 Yamila Watters MD [address] [place] [phone] [email or web address] PCP - General Family Medicine 03/08/24 documented as of this encounter Additional Source Comments The information contained in this document represents components of the legal health record. It is not the complete legal health record.[facility]
--- OUTSIDE RECORDS SUMMARY | 2025-01-17 18:07 | XMS_ITS | Encounter Summary ---
Author Organization [facility] Address [address] [place] [phone] Phone Care Team Providers Care Client Operations Manager Name Role Phone Yamila Watters MD Primary Care Provider + Encounter Details Date Type Department Care Team (Late st Contact Info) Description 12/13/2024 Orders Only [facility] Department of Orthopaedics [address] [place] [address] Alice Dow [address] [place] [address] [email or web address] Pain (Primary Dx) Social History Tobacco Use Types Packs/Day Years [...] your housing situation today? I have lucian yanez 11/25/2024 How many times have you move [...] Description 02/23/2025 11:20 AM EST Office Visit [facility] [address] [place] [address] Yony Locke MD [address] [place] [address] [email or web address] 03/21/2025 12:00 PM EST Office Visit [facility] Department of Orthopaedics [address] [place] [address] Bernard Velasquez MD [address] [place] [phone] [email or web address] documented as of this encounter Results * XR KNEE 3 VIEW (LEFT) [...] clinician's provided indication for this examination in [facility]: Pain COMPARISON: XR BONE LENGTH STUDY ; MRI KNEE WITHOUT CONTRAST (LEFT) 2024-; XR KNEE 1-2 VIEWS (LEFT) 2024- FINDINGS: Left Knee: Total knee arthroplasty. Hardware [...] clinician's provided indication for this examination in [facility]:Pain COMPARISON: XR BONE LENGTH STUDY ; [...] edited thereport originally created by Grace Martinez. Ricarda Gutiérrez PA-C IMG XR LOWER EXTREMITY Fi nal Result documented in this encounter Visit Diagnoses Diagnosis Pain- Primary Generalized pain Pain Generalized pain documented in this encounter Care Teams Client Operations Manager Relationship Specialty Start Date End Date Yamila Watters MD [address] [place] [phone] [email or web address] PCP - General Family Medicine 03/08/24 documented as of this encounter Additional Source Comments The information contained in this document represents components of the legal health record. It is not the complete legal health record.[facility]
== END 2025-01-17 15:12 | disposition home or self-care (01) ==
LOC: HO.LAB 15:11
PROVIDERS: PCP Family Medicine; Visit Provider Internal Medicine Endocrinology, Diabetes & Metabolism
DX: M81.0 Age-related osteoporosis without current pathological fracture (principal); E89.0 Postprocedural hypothyroidism
CPT/HCPCS: 36415; 82040; 82306; 82310; 82565; 84443